=== PATIENT | male | born 1995 | race Caucasian/White ===

== ENCOUNTER 2021-06-24 00:11 | Emergency (ER) | payer OTHER ==
[~2021-06-24] VITALS: Ht 162.6 cm; Wt 72.6 kg
--- NOTE | 2021-06-24 00:27 | NUR ---
BIBSELF C/O LAC ON BACK OF HEAD S/P HITTING IT WITH WEIGHTS ON SUN NIGHT. PATIENT ALERT AND ORIENTEDX 4. PATIENT IS AMBULATORY WITH NON LABORED BREAIHTNG.
--- NOTE | 2021-06-24 00:38 | NUR ---
PT RETURNED FROM CT
--- NOTE | 2021-06-24 01:34 | NUR ---
Patient discharged to home in stable condition. Written and verbal after care instructions given. Patient verbalizes understanding of instruction. Pt ambulatory with a steady gait
[2021-06-24 01:36] VITALS: BP 143/78
== END 2021-06-24 01:36 | disposition home or self-care (01) ==
LOC: ER 00:17
DX: S01.01XA Laceration without foreign body of scalp, initial encounter (principal); S09.90XA Unspecified injury of head, initial encounter; W22.8XXA Striking against or struck by other objects, initial encounter; Y93.9 Activity, unspecified; Y92.89 Other specified places as the place of occurrence of the external cause; Y99.8 Other external cause status
CPT/HCPCS: 70450-TC